=== PATIENT | male | born 1945 | race Caucasian/White ===

== ENCOUNTER 2021-04-13 11:51 | Inpatient (IN) ==
[2021-04-13] MEDS ORDERED: 0.9 % Sodium Chloride 1,000 ML IVC ONE (12:23)
[2021-04-13] MEDS ORDERED: Ipratropium/Albuterol Neb 3 ML IH ONE (12:23)
[2021-04-13 13:09] LABS: Mean Corpuscular HGB Conc 33.8 g/dL (31.6-35.5); Mean Corpuscular Hemoglobin 29.2 pg (28.0-33.3); Nucleated Red Blood Cells 0.3 /100 WBC (0); Red Cell Distribution Width 13.1 % (11.5-14.5)
[2021-04-13 13:11] LABS: Basophils % 0.2 %; Eosinophils # 0.2 K/mcL (0.0-0.6); Eosinophils % 0.9 %; Hematocrit 44.7 % (37.5-50.1); Hemoglobin 15.1 g/dL (12.9-16.9); Immature Granulocytes % 2.3 % (0-4); Immature Platelets 9.2 % (1.1-6.1); Lymphocytes # 0.9 K/mcL (0.6-4.6); Lymphocytes % 4.6 %; Mean Corpuscular Volume 86.5 fL (83.0-100.0); Monocytes # 0.4 K/mcL (0.0-1.3); Monocytes % 2.1 %; Neutrophils # 16.9 K/mcL (1.6-8.9); Platelet Count 136 K/mcL (140-400); Red Blood Count 5.17 M/mcL (4.19-5.50); Segmented Neutrophils % 89.9 %; White Blood Count 18.8 K/mcL (4.3-11.1)
[2021-04-13 13:18] LABS: BUN/Creatinine Ratio 22 (6-26); Blood Urea Nitrogen 23 mg/dL (8-23); Calcium 8.2 mg/dL (8.6-10.3); Carbon Dioxide 27 mEq/L (23-29); Chloride 103 mEq/L (98-107); Glucose 125 mg/dL (70-105); Osmolality,Calculated 293 (280-300); Potassium 3.2 mEq/L (3.5-5.1); Sodium 139 mEq/L (136-145); eGFR For African Americans > 60 (> 60); eGFR For Non-African Americans > 60 (> 60)
[2021-04-13] MEDS ORDERED: Ipratropium/Albuterol Neb 3 ML ONE (13:22)
[2021-04-13 13:27] LABS: Troponin I 8.14 ng/mL (< 0.04)
[2021-04-13] MEDS ORDERED: *HR* Heparin 5,000 UNIT/ML VIAL IVP PRN ×4 (13:50→22:27)
[2021-04-13] MEDS ORDERED: *HR* Heparin 5,000 UNIT/ML VIAL IVP ONE ×2 (13:50→22:27)
[2021-04-13] MEDS ORDERED: Heparin 25,000UNIT/250ML 1/2NS 25,000 UNIT/250 ML IV.SOLN IVC SCH (14:00)
[2021-04-13] MEDS ORDERED: Naloxone 0.4 MG/ML INJ IVP PRN (14:06)
[2021-04-13] MEDS ORDERED: Ondansetron 4 MG/2 ML VIAL IVP PRN (14:06)
[2021-04-13] MEDS ORDERED: Isovue-370 500 ML BOTTLE IVP ONE (14:09)
[2021-04-13] MEDS ORDERED: Ipratropium 1 PUFF INHALER IH PRN (14:10)
[2021-04-13] MEDS ORDERED: Dexamethasone Sodium Phos/PF 10 MG/ML VIAL IVP ONE (14:11)
[2021-04-13] MEDS ORDERED: Perflutren Lipid Microsphere 1.3 ML in 0.9 % Sodium Chloride 8.7 ML IVP PRN (14:27)
[2021-04-13 15:19] LABS: Hematocrit 42.3 % (37.5-50.1); Hemoglobin 14.2 g/dL (12.9-16.9); Mean Corpuscular HGB Conc 33.6 g/dL (31.6-35.5); Mean Corpuscular Hemoglobin 28.9 pg (28.0-33.3); Mean Platelet Volume 11.4 fL (9.4-12.4); Platelet Count 123 K/mcL (140-400); Red Blood Count 4.92 M/mcL (4.19-5.50); Red Cell Distribution Width 13.2 % (11.5-14.5); White Blood Count 17.6 K/mcL (4.3-11.1)
[2021-04-13 15:29] LABS: Heparin anti-factor XA UFH < 0.04 IU/mL (0.30-0.70)
[2021-04-13 15:30] LABS: INR 1.4; Prothrombin Time 15.9 Seconds (9.4-12.1)
[2021-04-13 16:55] LABS: Alanine Aminotransferase 35 Units/L (7-52); Alkaline Phosphatase 94 Units/L (34-104); Aspartate Amino Transferase 73 Units/L (13-39); Bilirubin,Direct 0.3 mg/dL (0.0-0.2); Bilirubin,Total 1.3 mg/dL (0.3-1.0); C-Reactive Protein 91 mg/L (Less than 10); Total Protein 5.8 g/dL (6.4-8.9)
[2021-04-13] MEDS ORDERED: carvediloL 6.25 MG TABLET PO SCH (17:00)
[2021-04-13 17:03] LABS: Albumin 3.1 g/dL (3.5-5.7); Albumin/Globulin Ratio 1.1 (1.1-2.2); Globulin 2.7 g/dL (2.4-3.5)
[2021-04-13 17:09] LABS: D-Dimer 88291 ng/mLFEU (0-500)
[2021-04-13] MEDS: Furosemide 20 MG/2 ML VIAL IVP SCH (19:51)
[2021-04-13] MEDS: Heparin 25,000 UNIT/250 ML 25,000 UNIT/250 ML IV.SOLN IVC SCH (22:41)
[2021-04-14] MEDS: amLODIPine 5 MG TABLET PO SCH (08:44)
[2021-04-14] MEDS: carvediloL 6.25 MG TABLET PO SCH ×2 (08:44→16:49)
[2021-04-14] MEDS: Furosemide 20 MG/2 ML VIAL IVP SCH ×2 (08:44→20:05)
[2021-04-14] MEDS: Aspirin Enteric Coated 81 MG Tablet PO SCH (08:44)
[2021-04-14 09:20] LABS: Hemoglobin 15.1 g/dL (12.9-16.9); Mean Corpuscular HGB Conc 34.3 g/dL (31.6-35.5); Mean Corpuscular Hemoglobin 29.6 pg (28.0-33.3); Mean Corpuscular Volume 86.3 fL (83.0-100.0); Platelet Count 145 K/mcL (140-400); Red Cell Distribution Width 13.3 % (11.5-14.5); White Blood Count 21.1 K/mcL (4.3-11.1)
[2021-04-14 09:43] LABS: BUN/Creatinine Ratio 27 (6-26); Blood Urea Nitrogen 24 mg/dL (8-23); Carbon Dioxide 27 mEq/L (23-29); Chloride 107 mEq/L (98-107); Glucose 120 mg/dL (70-105); Magnesium 2.1 mg/dL (1.6-2.6); Osmolality,Calculated 299 (280-300); Phosphorous 2.8 mg/dL (2.7-4.5); Sodium 142 mEq/L (136-145); eGFR For African Americans > 60 (> 60); eGFR For Non-African Americans > 60 (> 60)
[2021-04-14 09:47] LABS: Troponin I 6.48 ng/mL (< 0.04)
[2021-04-14] MEDS: Heparin 25,000 UNIT/250 ML 25,000 UNIT/250 ML IV.SOLN IVC SCH (20:14)
[2021-04-14] MEDS: Dexmedetomidine HCl 400 MCG/100 ML MLS IVC SCH (23:45)
[2021-04-15] MEDS: Ipratropium 1 PUFF INHALER IH SCH ×7 (00:03→23:48)
[2021-04-15 00:07] LABS: ABG Base Excess 6 mEq/L (-2 to 3); ABG HCO3 28 mEq/L (21-27); ABG Oxygen Saturation 91 % (95-98); ABG PCO2 34 mmHg (35-45); ABG PH 7.53 pH Units (7.32-7.45); ABG PO2 53 mmHg (85-104); ABG TCO2 29 mEq/L (20-26)
[2021-04-15 06:07] LABS: White Blood Count 25.7 K/mcL (4.3-11.1)
[2021-04-15 06:09] LABS: Basophils # 0.1 K/mcL (0.0-0.2); Basophils % 0.3 %; Hematocrit 39.4 % (37.5-50.1); Hemoglobin 13.6 g/dL (12.9-16.9); Immature Granulocytes % 3.4 % (0-4); Lymphocytes # 1.3 K/mcL (0.6-4.6); Mean Corpuscular HGB Conc 34.5 g/dL (31.6-35.5); Mean Corpuscular Hemoglobin 30.2 pg (28.0-33.3); Mean Corpuscular Volume 87.4 fL (83.0-100.0); Mean Platelet Volume 11.9 fL (9.4-12.4); Monocytes # 0.9 K/mcL (0.0-1.3); Monocytes % 3.5 %; Nucleated Red Blood Cells 0.1 /100 WBC (0); Platelet Count 178 K/mcL (140-400); Red Blood Count 4.51 M/mcL (4.19-5.50); Red Cell Distribution Width 13.5 % (11.5-14.5); Segmented Neutrophils % 87.8 %
[2021-04-15 06:10] LABS: Neutrophils # 22.6 K/mcL (1.6-8.9)
[2021-04-15 06:20] LABS: Fibrinogen 210 mg/dL (169-393)
[2021-04-15 06:26] LABS: BUN/Creatinine Ratio 33 (6-26); Blood Urea Nitrogen 36 mg/dL (8-23); Calcium 7.8 mg/dL (8.6-10.3); Carbon Dioxide 28 mEq/L (23-29); Chloride 103 mEq/L (98-107); Glucose 133 mg/dL (70-105); Lactate Dehydrogenase 764 Units/L (140-271); Osmolality,Calculated 302 (280-300); Potassium 3.1 mEq/L (3.5-5.1); Sodium 141 mEq/L (136-145); eGFR For African Americans > 60 (> 60); eGFR For Non-African Americans > 60 (> 60)
[2021-04-15] MEDS: Heparin 25,000 UNIT/250 ML 25,000 UNIT/250 ML IV.SOLN IVC SCH ×2 (06:29→22:42)
[2021-04-15 06:36] LABS: D-Dimer 4890 ng/mLFEU (0-500)
[2021-04-15 06:38] LABS: Ferritin 704 ng/mL (20-250)
[2021-04-15] MEDS: Furosemide 20 MG/2 ML VIAL IVP SCH ×2 (08:36→19:43)
[2021-04-15] MEDS: Cholecalciferol (D-3) 1,000 UNIT (25MCG) TABLET PO SCH (08:37)
[2021-04-15] MEDS: amLODIPine 5 MG TABLET PO SCH (08:37)
[2021-04-15] MEDS: Aspirin Enteric Coated 81 MG Tablet PO SCH (08:37)
[2021-04-15] MEDS: Loratadine 10 MG TABLET PO SCH (08:37)
[2021-04-15] MEDS: carvediloL 6.25 MG TABLET PO SCH ×2 (08:38→17:59)
[2021-04-15] MEDS: Dexmedetomidine HCl 400 MCG/100 ML MLS IVC SCH (12:14)
[2021-04-16] MEDS: Dexmedetomidine HCl 400 MCG/100 ML MLS IVC SCH ×2 (02:32→17:18)
[2021-04-16] MEDS: Ipratropium 1 PUFF INHALER IH SCH ×6 (04:10→23:35)
[2021-04-16 05:59] LABS: Basophils % 0.3 %; Monocytes % 3.7 %; Nucleated Red Blood Cells 0.1 /100 WBC (0)
[2021-04-16 06:01] LABS: Basophils # 0.1 K/mcL (0.0-0.2); Hematocrit 40.9 % (37.5-50.1); Immature Granulocytes % 3.8 % (0-4); Lymphocytes # 1.4 K/mcL (0.6-4.6); Lymphocytes % 4.7 %; Mean Corpuscular HGB Conc 34.2 g/dL (31.6-35.5); Mean Corpuscular Hemoglobin 29.7 pg (28.0-33.3); Mean Corpuscular Volume 86.7 fL (83.0-100.0); Mean Platelet Volume 11.5 fL (9.4-12.4); Monocytes # 1.1 K/mcL (0.0-1.3); Neutrophils # 26.4 K/mcL (1.6-8.9); Platelet Count 218 K/mcL (140-400); Red Blood Count 4.72 M/mcL (4.19-5.50); Red Cell Distribution Width 13.2 % (11.5-14.5); Segmented Neutrophils % 87.5 %
[2021-04-16 06:06] LABS: White Blood Count 30.2 K/mcL (4.3-11.1)
[2021-04-16 06:17] LABS: Alanine Aminotransferase 32 Units/L (7-52); Albumin 2.8 g/dL (3.5-5.7); Albumin/Globulin Ratio 1.3 (1.1-2.2); Alkaline Phosphatase 90 Units/L (34-104); Aspartate Amino Transferase 31 Units/L (13-39); BUN/Creatinine Ratio 35 (6-26); Bilirubin,Total 0.6 mg/dL (0.3-1.0); Blood Urea Nitrogen 40 mg/dL (8-23); Calcium 8.2 mg/dL (8.6-10.3); Carbon Dioxide 28 mEq/L (23-29); Chloride 105 mEq/L (98-107); Globulin 2.2 g/dL (2.4-3.5); Glucose 152 mg/dL (70-105); Magnesium 2.3 mg/dL (1.6-2.6); Osmolality,Calculated 303 (280-300); Phosphorous 3.6 mg/dL (2.7-4.5); Potassium 3.6 mEq/L (3.5-5.1); Sodium 140 mEq/L (136-145); eGFR For African Americans > 60 (> 60); eGFR For Non-African Americans > 60 (> 60)
[2021-04-16] MEDS: amLODIPine 5 MG TABLET PO SCH (08:02)
[2021-04-16] MEDS: carvediloL 6.25 MG TABLET PO SCH ×2 (08:02→17:13)
[2021-04-16] MEDS: Aspirin Enteric Coated 81 MG Tablet PO SCH (08:03)
[2021-04-16] MEDS: Furosemide 20 MG/2 ML VIAL IVP SCH ×2 (08:03→19:46)
[2021-04-16] MEDS: Cholecalciferol (D-3) 1,000 UNIT (25MCG) TABLET PO SCH (08:04)
[2021-04-16] MEDS: Loratadine 10 MG TABLET PO SCH (08:04)
[2021-04-16] MEDS: Heparin 25,000 UNIT/250 ML 25,000 UNIT/250 ML IV.SOLN IVC SCH (14:20)
[2021-04-17] MEDS: Ipratropium 1 PUFF INHALER IH SCH ×6 (03:50→23:43)
[2021-04-17] MEDS: Dexmedetomidine HCl 400 MCG/100 ML MLS IVC SCH ×2 (05:57→18:10)
[2021-04-17] MEDS: Heparin 25,000 UNIT/250 ML 25,000 UNIT/250 ML IV.SOLN IVC SCH (06:57)
[2021-04-17] MEDS: carvediloL 6.25 MG TABLET PO SCH (08:53)
[2021-04-17] MEDS: amLODIPine 5 MG TABLET PO SCH (08:53)
[2021-04-17] MEDS: Aspirin Enteric Coated 81 MG Tablet PO SCH (09:03)
[2021-04-17] MEDS: Loratadine 10 MG TABLET PO SCH (09:03)
[2021-04-17] MEDS: Furosemide 20 MG/2 ML VIAL IVP SCH ×2 (09:04→19:59)
[2021-04-17] MEDS: Cholecalciferol (D-3) 1,000 UNIT (25MCG) TABLET PO SCH (09:04)
[2021-04-17 09:57] LABS: Mean Platelet Volume 11.9 fL (9.4-12.4)
[2021-04-17 09:59] LABS: Hematocrit 42.1 % (37.5-50.1); Hemoglobin 14.1 g/dL (12.9-16.9); Mean Corpuscular HGB Conc 33.5 g/dL (31.6-35.5); Mean Corpuscular Hemoglobin 29.1 pg (28.0-33.3); Nucleated Red Blood Cells 0.1 /100 WBC (0); Platelet Count 242 K/mcL (140-400); Red Blood Count 4.84 M/mcL (4.19-5.50); Red Cell Distribution Width 13.5 % (11.5-14.5); White Blood Count 25.1 K/mcL (4.3-11.1)
[2021-04-17 10:14] LABS: Alanine Aminotransferase 44 Units/L (7-52); Albumin 2.8 g/dL (3.5-5.7); Albumin/Globulin Ratio 1.2 (1.1-2.2); Alkaline Phosphatase 79 Units/L (34-104); Aspartate Amino Transferase 36 Units/L (13-39); BUN/Creatinine Ratio 35 (6-26); Bilirubin,Total 0.6 mg/dL (0.3-1.0); Blood Urea Nitrogen 39 mg/dL (8-23); Carbon Dioxide 25 mEq/L (23-29); Chloride 103 mEq/L (98-107); Globulin 2.4 g/dL (2.4-3.5); Glucose 198 mg/dL (70-105); Osmolality,Calculated 301 (280-300); Potassium 3.1 mEq/L (3.5-5.1); Sodium 138 mEq/L (136-145); Total Protein 5.2 g/dL (6.4-8.9); eGFR For African Americans > 60 (> 60); eGFR For Non-African Americans > 60 (> 60)
[2021-04-17 10:21] LABS: Lymphocytes # 1.5 K/mcL (0.6-4.6); Monocytes # 0.8 K/mcL (0.0-1.3); Neutrophils # 22.8 K/mcL (1.6-8.9); Platelet Estimate Normal (Normal)
[2021-04-17] MEDS: Apixaban 5 MG TABLET PO SCH (19:59)
[2021-04-17] MEDS ORDERED: QUEtiapine Fumarate 25 MG TABLET PO SCH (21:00)
[2021-04-18] MEDS: Ipratropium 1 PUFF INHALER IH SCH ×6 (03:56→23:06)
[2021-04-18] MEDS: Dexmedetomidine HCl 400 MCG/100 ML MLS IVC SCH (04:21)
[2021-04-18] MEDS: Aspirin Enteric Coated 81 MG Tablet PO SCH (10:22)
[2021-04-18] MEDS: Apixaban 5 MG TABLET PO SCH ×2 (10:23→19:52)
[2021-04-18] MEDS: Furosemide 20 MG/2 ML VIAL IVP SCH ×2 (10:23→19:53)
[2021-04-18] MEDS: Cholecalciferol (D-3) 1,000 UNIT (25MCG) TABLET PO SCH (10:23)
[2021-04-18] MEDS: Loratadine 10 MG TABLET PO SCH (10:23)
[2021-04-18] MEDS: amLODIPine 5 MG TABLET PO SCH (10:23)
[2021-04-18] MEDS: QUEtiapine Fumarate 25 MG TABLET PO SCH ×2 (16:31→19:52)
[2021-04-19] MEDS: Ipratropium 1 PUFF INHALER IH SCH ×6 (03:30→23:55)
[2021-04-19] MEDS: Cholecalciferol (D-3) 1,000 UNIT (25MCG) TABLET PO SCH (09:56)
[2021-04-19] MEDS: amLODIPine 5 MG TABLET PO SCH (09:56)
[2021-04-19] MEDS: Loratadine 10 MG TABLET PO SCH (09:57)
[2021-04-19] MEDS: Furosemide 20 MG/2 ML VIAL IVP SCH ×2 (09:57→20:26)
[2021-04-19] MEDS: Aspirin Enteric Coated 81 MG Tablet PO SCH (09:57)
[2021-04-19] MEDS: Apixaban 5 MG TABLET PO SCH ×2 (09:57→20:27)
[2021-04-19] MEDS: QUEtiapine Fumarate 25 MG TABLET PO SCH ×2 (09:57→20:27)
[2021-04-19] MEDS: Dexamethasone Sodium Phos/PF 10 MG/ML VIAL IVP SCH (09:58)
[2021-04-19] MEDS: carvediloL 6.25 MG TABLET PO SCH ×2 (10:00→20:27)
[2021-04-19 10:05] LABS: Mean Platelet Volume 11.1 fL (9.4-12.4); Nucleated Red Blood Cells 0.1 /100 WBC (0)
[2021-04-19 10:07] LABS: Hematocrit 43.9 % (37.5-50.1); Hemoglobin 14.6 g/dL (12.9-16.9); Mean Corpuscular HGB Conc 33.3 g/dL (31.6-35.5); Mean Corpuscular Hemoglobin 29.3 pg (28.0-33.3); Platelet Count 280 K/mcL (140-400); Red Blood Count 4.99 M/mcL (4.19-5.50); White Blood Count 25.9 K/mcL (4.3-11.1)
[2021-04-19 10:24] LABS: Alanine Aminotransferase 55 Units/L (7-52); Albumin 3.1 g/dL (3.5-5.7); Albumin/Globulin Ratio 1.3 (1.1-2.2); Alkaline Phosphatase 74 Units/L (34-104); Aspartate Amino Transferase 32 Units/L (13-39); Bilirubin,Total 0.7 mg/dL (0.3-1.0); Blood Urea Nitrogen 39 mg/dL (8-23); Calcium 8.2 mg/dL (8.6-10.3); Carbon Dioxide 26 mEq/L (23-29); Chloride 104 mEq/L (98-107); Globulin 2.3 g/dL (2.4-3.5); Glucose 128 mg/dL (70-105); Osmolality,Calculated 297 (280-300); Potassium 3.3 mEq/L (3.5-5.1); Sodium 138 mEq/L (136-145); Total Protein 5.4 g/dL (6.4-8.9)
[2021-04-19 11:33] LABS: BUN/Creatinine Ratio 36 (6-26); eGFR For African Americans > 60 (> 60); eGFR For Non-African Americans > 60 (> 60)
[2021-04-19 15:45] LABS: Monocytes # 1.6 K/mcL (0.0-1.3); Neutrophils # 23.3 K/mcL (1.6-8.9); Reactive Lymphocytes Present (Not Present)
[2021-04-19 15:46] LABS: Platelet Estimate Normal (Normal)
[2021-04-20] MEDS: Ipratropium 1 PUFF INHALER IH SCH ×5 (03:48→20:47)
[2021-04-20] MEDS: Apixaban 5 MG TABLET PO SCH ×2 (08:34→21:26)
[2021-04-20] MEDS: amLODIPine 5 MG TABLET PO SCH (08:34)
[2021-04-20] MEDS: Cholecalciferol (D-3) 1,000 UNIT (25MCG) TABLET PO SCH (08:34)
[2021-04-20] MEDS: Loratadine 10 MG TABLET PO SCH (08:35)
[2021-04-20] MEDS: QUEtiapine Fumarate 25 MG TABLET PO SCH ×2 (08:35→21:26)
[2021-04-20] MEDS: Furosemide 20 MG/2 ML VIAL IVP SCH ×3 (08:35→21:15)
[2021-04-20] MEDS: Aspirin Enteric Coated 81 MG Tablet PO SCH (08:35)
[2021-04-20] MEDS: carvediloL 6.25 MG TABLET PO SCH ×2 (08:35→21:26)
[2021-04-20] MEDS: Dexamethasone Sodium Phos/PF 10 MG/ML VIAL IVP SCH (08:36)
[2021-04-20] MEDS ORDERED: Haloperidol Lactate 5 MG/ML VIAL IM ONE (21:04)
[2021-04-21] MEDS: Ipratropium 1 PUFF INHALER IH SCH ×7 (00:13→23:40)
[2021-04-21 02:13] LABS: Hematocrit 48.8 % (37.5-50.1); Hemoglobin 15.8 g/dL (12.9-16.9); Mean Corpuscular HGB Conc 32.4 g/dL (31.6-35.5); Mean Corpuscular Volume 89.7 fL (83.0-100.0); Mean Platelet Volume 10.8 fL (9.4-12.4); Platelet Count 307 K/mcL (140-400); Red Blood Count 5.44 M/mcL (4.19-5.50); Red Cell Distribution Width 14.2 % (11.5-14.5); White Blood Count 26.9 K/mcL (4.3-11.1)
[2021-04-21 02:31] LABS: BUN/Creatinine Ratio 38 (6-26); Blood Urea Nitrogen 34 mg/dL (8-23); Calcium 8.1 mg/dL (8.6-10.3); Carbon Dioxide 23 mEq/L (23-29); Chloride 104 mEq/L (98-107); Glucose 113 mg/dL (70-105); Magnesium 2.3 mg/dL (1.6-2.6); Osmolality,Calculated 290 (280-300); Potassium 4.1 mEq/L (3.5-5.1); Sodium 136 mEq/L (136-145); eGFR For African Americans > 60 (> 60); eGFR For Non-African Americans > 60 (> 60)
[2021-04-21 02:33] LABS: BUN/Creatinine Ratio 37 (6-26); Blood Urea Nitrogen 34 mg/dL (8-23); Calcium 8.3 mg/dL (8.6-10.3); Carbon Dioxide 24 mEq/L (23-29); Chloride 104 mEq/L (98-107); Glucose 112 mg/dL (70-105); Osmolality,Calculated 292 (280-300); Sodium 137 mEq/L (136-145); eGFR For African Americans > 60 (> 60); eGFR For Non-African Americans > 60 (> 60)
[2021-04-21 02:37] LABS: Lymphocytes # 1.1 K/mcL (0.6-4.6); Monocytes # 2.2 K/mcL (0.0-1.3); Neutrophils # 23.7 K/mcL (1.6-8.9); Platelet Estimate Normal (Normal); Reactive Lymphocytes Present (Not Present)
[2021-04-21] MEDS: Aspirin Enteric Coated 81 MG Tablet PO SCH (07:37)
[2021-04-21] MEDS: Cholecalciferol (D-3) 1,000 UNIT (25MCG) TABLET PO SCH (07:37)
[2021-04-21] MEDS: Loratadine 10 MG TABLET PO SCH (07:37)
[2021-04-21] MEDS: QUEtiapine Fumarate 25 MG TABLET PO SCH ×2 (07:37→21:01)
[2021-04-21] MEDS: amLODIPine 5 MG TABLET PO SCH (07:38)
[2021-04-21] MEDS: *HR* HYDROcodone/Acet 5/325 mg TABLET PO PRN ×2 (07:38→14:42)
[2021-04-21] MEDS: carvediloL 6.25 MG TABLET PO SCH ×2 (07:38→21:01)
[2021-04-21] MEDS: Apixaban 5 MG TABLET PO SCH ×2 (07:38→21:01)
[2021-04-21] MEDS: Furosemide 20 MG TABLET PO SCH (10:15)
[2021-04-21] MEDS: dexAMETHasone 4 MG TABLET PO SCH (10:15)
[2021-04-22] MEDS: Ipratropium 1 PUFF INHALER IH SCH ×2 (04:07→11:02)
[2021-04-22] MEDS: Cholecalciferol (D-3) 1,000 UNIT (25MCG) TABLET PO SCH (09:53)
[2021-04-22] MEDS: amLODIPine 5 MG TABLET PO SCH (09:53)
[2021-04-22] MEDS: Furosemide 20 MG TABLET PO SCH (09:53)
[2021-04-22] MEDS: Apixaban 5 MG TABLET PO SCH ×2 (09:53→21:13)
[2021-04-22] MEDS: dexAMETHasone 4 MG TABLET PO SCH (09:53)
[2021-04-22] MEDS: carvediloL 6.25 MG TABLET PO SCH ×2 (09:53→21:13)
[2021-04-22] MEDS: QUEtiapine Fumarate 25 MG TABLET PO SCH ×2 (09:53→21:14)
[2021-04-22] MEDS: Aspirin Enteric Coated 81 MG Tablet PO SCH (09:53)
[2021-04-22] MEDS: Loratadine 10 MG TABLET PO SCH (09:53)
[2021-04-22] MEDS ORDERED: Ipratropium 1 PUFF INHALER IH PRN (11:01)
[2021-04-22] MEDS ORDERED: Benzonatate 100 MG CAPSULE PO PRN (17:40)
[2021-04-23] MEDS ORDERED: *HR* Metoprolol 5 MG/5 ML VIAL IVP ONE (00:58)
[2021-04-23 01:33] LABS: Platelet Count 221 K/mcL (140-400)
[2021-04-23 01:34] LABS: Hematocrit 44.7 % (37.5-50.1); Hemoglobin 14.2 g/dL (12.9-16.9); Mean Corpuscular HGB Conc 31.8 g/dL (31.6-35.5); Mean Corpuscular Volume 91.4 fL (83.0-100.0); Mean Platelet Volume 11.2 fL (9.4-12.4); Red Blood Count 4.89 M/mcL (4.19-5.50); Red Cell Distribution Width 14.6 % (11.5-14.5)
[2021-04-23 01:41] LABS: White Blood Count 34.9 K/mcL (4.3-11.1)
[2021-04-23 01:48] LABS: BUN/Creatinine Ratio 35 (6-26); Blood Urea Nitrogen 44 mg/dL (8-23); Calcium 8.4 mg/dL (8.6-10.3); Carbon Dioxide 21 mEq/L (23-29); Chloride 104 mEq/L (98-107); Glucose 145 mg/dL (70-105); Osmolality,Calculated 292 (280-300); Potassium 4.3 mEq/L (3.5-5.1); Sodium 134 mEq/L (136-145); eGFR For African Americans > 60 (> 60); eGFR For Non-African Americans 56 (> 60)
[2021-04-23] MEDS: amLODIPine 5 MG TABLET PO SCH (09:02)
[2021-04-23] MEDS: Apixaban 5 MG TABLET PO SCH ×2 (09:02→20:36)
[2021-04-23] MEDS: carvediloL 6.25 MG TABLET PO SCH ×2 (09:02→20:36)
[2021-04-23] MEDS: Cholecalciferol (D-3) 1,000 UNIT (25MCG) TABLET PO SCH (09:02)
[2021-04-23] MEDS: Loratadine 10 MG TABLET PO SCH (09:02)
[2021-04-23] MEDS: Aspirin Enteric Coated 81 MG Tablet PO SCH (09:02)
[2021-04-23] MEDS: Furosemide 20 MG TABLET PO SCH (09:02)
[2021-04-23] MEDS: QUEtiapine Fumarate 25 MG TABLET PO SCH ×2 (09:02→20:36)
[2021-04-23 12:21] LABS: Lymphocytes # 0.7 K/mcL (0.6-4.6); Monocytes # 1.4 K/mcL (0.0-1.3); Neutrophils # 32.8 K/mcL (1.6-8.9); Platelet Estimate Normal (Normal)
[2021-04-23 12:22] LABS: Toxic Granulation Present (Not Present)
[2021-04-23] MEDS ORDERED: Vancomycin 1,250 MG/262.5 ML IV.SOLN IVPB ONE (14:37)
[2021-04-23] MEDS ORDERED: Vancomycin 1 EACH in 0.9 % Sodium Chloride 250 ML IVPB SCH (15:00)
[2021-04-23 15:20] LABS: ABG Base Excess 1 mEq/L (-2 to 3); ABG HCO3 25 mEq/L (21-27); ABG Oxygen Saturation 91 % (95-98); ABG PCO2 35 mmHg (35-45); ABG PH 7.46 pH Units (7.32-7.45); ABG PO2 57 mmHg (85-104); ABG TCO2 26 mEq/L (20-26)
[2021-04-23 15:27] LABS: Bilirubin,Urine Negative (Negative); Blood,Urine Negative (Negative); Clarity,Urine Clear (Clear); Color,Urine Light-Yellow (Yellow); Glucose,Urine (UA) Normal (Normal); Ketones,Urine Negative (Negative); Leukocyte Esterase,Urine Negative (Negative); Nitrite,Urine Negative (Negative); PH,Urine 5.5 pH Units (5.0-8.0); Protein,Urine Trace mg/dL (Neg-Trace); Specific Gravity,Urine 1.022 (1.010-1.025); Urobilinogen,Urine Normal (Normal)
[2021-04-23] MEDS: Piperacillin/Tazobactam 3.375 GM in 0.9 % Sodium Chloride Mini Bag 100 ML IVPB SCH (16:49)
[2021-04-24] MEDS: Piperacillin/Tazobactam 3.375 GM in 0.9 % Sodium Chloride Mini Bag 100 ML IVPB SCH ×2 (00:53→08:14)
[2021-04-24 01:47] LABS: Alanine Aminotransferase 27 Units/L (7-52); Albumin 2.3 g/dL (3.5-5.7); Albumin/Globulin Ratio 0.9 (1.1-2.2); Alkaline Phosphatase 68 Units/L (34-104); Aspartate Amino Transferase 22 Units/L (13-39); BUN/Creatinine Ratio 38 (6-26); Bilirubin,Total 0.8 mg/dL (0.3-1.0); Blood Urea Nitrogen 42 mg/dL (8-23); Carbon Dioxide 24 mEq/L (23-29); Chloride 103 mEq/L (98-107); Globulin 2.7 g/dL (2.4-3.5); Glucose 113 mg/dL (70-105); Osmolality,Calculated 283 (280-300); Potassium 3.9 mEq/L (3.5-5.1); Sodium 131 mEq/L (136-145); eGFR For African Americans > 60 (> 60); eGFR For Non-African Americans > 60 (> 60)
[2021-04-24 03:21] LABS: Hemoglobin 11.8 g/dL (12.9-16.9); Lymphocytes % 3.7 %; Mean Platelet Volume 11.1 fL (9.4-12.4)
[2021-04-24 03:22] LABS: Basophils # 0.1 K/mcL (0.0-0.2); Basophils % 0.2 %; Eosinophils % 0.1 %; Hematocrit 36.4 % (37.5-50.1); Immature Granulocytes % 1.7 % (0-4); Lymphocytes # 1.1 K/mcL (0.6-4.6); Mean Corpuscular HGB Conc 32.4 g/dL (31.6-35.5); Mean Corpuscular Hemoglobin 29.9 pg (28.0-33.3); Mean Corpuscular Volume 92.2 fL (83.0-100.0); Monocytes # 1.8 K/mcL (0.0-1.3); Monocytes % 6.1 %; Neutrophils # 25.5 K/mcL (1.6-8.9); Platelet Count 208 K/mcL (140-400); Red Blood Count 3.95 M/mcL (4.19-5.50); Red Cell Distribution Width 14.8 % (11.5-14.5); Segmented Neutrophils % 88.2 %; White Blood Count 28.9 K/mcL (4.3-11.1)
[2021-04-24 04:04] LABS: Acinetobacter baumannii by PCR Not Detected (Not Detect); Candida albicans by PCR Not Detected (Not Detect); Candida glabrata by PCR Not Detected (Not Detect); Candida krusei by PCR Not Detected (Not Detect); Candida parapsilosis by PCR Not Detected (Not Detect); Candida tropicalis by PCR Not Detected (Not Detect); Enterobacter cloacae Cmplx PCR Not Detected (Not Detect); Enterobacteriaceae by PCR Not Detected (Not Detect); Enterococcus by PCR Not Detected (Not Detect); Escherichia coli by PCR Not Detected (Not Detect); Klebsiella oxytoca by PCR Not Detected (Not Detect); Klebsiella pneumoniae by PCR Not Detected (Not Detect); Proteus by PCR Not Detected (Not Detect); Pseudomonas aeruginosa by PCR Not Detected (Not Detect); Serratia marcescens by PCR Not Detected (Not Detect); Staphylococcus aureus by PCR DETECTED (Not Detect); Streptococcus agalactiae(B)PCR Not Detected (Not Detect); Streptococcus by PCR Not Detected (Not Detect); Streptococcus pneumoniae PCR Not Detected (Not Detect); Streptococcus pyogenes (A) PCR Not Detected (Not Detect); mecA Methicillin-Resist Gene Not Detected (Not Detect)
[2021-04-24] MEDS: Aspirin Enteric Coated 81 MG Tablet PO SCH (08:13)
[2021-04-24] MEDS: amLODIPine 5 MG TABLET PO SCH (08:13)
[2021-04-24] MEDS: carvediloL 6.25 MG TABLET PO SCH ×2 (08:13→21:01)
[2021-04-24] MEDS: Cholecalciferol (D-3) 1,000 UNIT (25MCG) TABLET PO SCH (08:13)
[2021-04-24] MEDS: Loratadine 10 MG TABLET PO SCH (08:14)
[2021-04-24] MEDS: Apixaban 5 MG TABLET PO SCH ×2 (08:14→21:01)
[2021-04-24] MEDS: QUEtiapine Fumarate 25 MG TABLET PO SCH ×2 (08:14→21:01)
[2021-04-24] MEDS ORDERED: Perflutren Lipid Microsphere 1.3 ML in 0.9 % Sodium Chloride 8.7 ML IVP PRN (10:07)
[2021-04-24] MEDS ORDERED: Vancomycin 1,250 MG/262.5 ML IV.SOLN IVPB SCH ×2 (15:00)
[2021-04-24] MEDS: ceFAZolin 2,000 MG in 0.9 % Sodium Chloride 100 ML IVPB SCH ×2 (18:32→23:16)
[2021-04-25 05:14] LABS: Basophils % 0.2 %; Eosinophils # 0.1 K/mcL (0.0-0.6); Eosinophils % 0.7 %; Hematocrit 35.2 % (37.5-50.1); Hemoglobin 11.5 g/dL (12.9-16.9); Immature Granulocytes % 0.6 % (0-4); Lymphocytes % 5.3 %; Mean Corpuscular HGB Conc 32.7 g/dL (31.6-35.5); Mean Corpuscular Hemoglobin 29.6 pg (28.0-33.3); Mean Corpuscular Volume 90.5 fL (83.0-100.0); Mean Platelet Volume 10.4 fL (9.4-12.4); Monocytes # 1.1 K/mcL (0.0-1.3); Monocytes % 5.6 %; Neutrophils # 16.6 K/mcL (1.6-8.9); Platelet Count 202 K/mcL (140-400); Red Blood Count 3.89 M/mcL (4.19-5.50); Red Cell Distribution Width 14.6 % (11.5-14.5); Segmented Neutrophils % 87.6 %; White Blood Count 18.9 K/mcL (4.3-11.1)
[2021-04-25 05:31] LABS: Alanine Aminotransferase 113 Units/L (7-52); Albumin 2.3 g/dL (3.5-5.7); Albumin/Globulin Ratio 0.8 (1.1-2.2); Alkaline Phosphatase 115 Units/L (34-104); Aspartate Amino Transferase 102 Units/L (13-39); BUN/Creatinine Ratio 30 (6-26); Bilirubin,Total 0.6 mg/dL (0.3-1.0); Blood Urea Nitrogen 30 mg/dL (8-23); Calcium 7.7 mg/dL (8.6-10.3); Carbon Dioxide 24 mEq/L (23-29); Chloride 105 mEq/L (98-107); Globulin 2.8 g/dL (2.4-3.5); Glucose 106 mg/dL (70-105); Osmolality,Calculated 289 (280-300); Potassium 3.7 mEq/L (3.5-5.1); Sodium 136 mEq/L (136-145); Total Protein 5.1 g/dL (6.4-8.9); eGFR For African Americans > 60 (> 60); eGFR For Non-African Americans > 60 (> 60)
[2021-04-25] MEDS: ceFAZolin 2,000 MG in 0.9 % Sodium Chloride 100 ML IVPB SCH ×3 (08:42→23:15)
[2021-04-25] MEDS: amLODIPine 5 MG TABLET PO SCH (08:43)
[2021-04-25] MEDS: Cholecalciferol (D-3) 1,000 UNIT (25MCG) TABLET PO SCH (08:43)
[2021-04-25] MEDS: Loratadine 10 MG TABLET PO SCH (08:43)
[2021-04-25] MEDS: carvediloL 6.25 MG TABLET PO SCH ×2 (08:43→20:22)
[2021-04-25] MEDS: Apixaban 5 MG TABLET PO SCH ×2 (08:43→20:22)
[2021-04-25] MEDS: Aspirin Enteric Coated 81 MG Tablet PO SCH (08:43)
[2021-04-25] MEDS: QUEtiapine Fumarate 25 MG TABLET PO SCH ×2 (08:43→20:21)
[2021-04-26 03:16] LABS: Basophils % 0.1 %; Eosinophils # 0.3 K/mcL (0.0-0.6); Eosinophils % 2.2 %; Hematocrit 33.5 % (37.5-50.1); Immature Granulocytes % 0.5 % (0-4); Lymphocytes % 7.4 %; Mean Corpuscular HGB Conc 32.8 g/dL (31.6-35.5); Mean Corpuscular Hemoglobin 30.1 pg (28.0-33.3); Mean Corpuscular Volume 91.8 fL (83.0-100.0); Mean Platelet Volume 10.7 fL (9.4-12.4); Monocytes # 0.8 K/mcL (0.0-1.3); Monocytes % 6.5 %; Neutrophils # 10.8 K/mcL (1.6-8.9); Platelet Count 212 K/mcL (140-400); Red Blood Count 3.65 M/mcL (4.19-5.50); Red Cell Distribution Width 14.7 % (11.5-14.5); Segmented Neutrophils % 83.3 %
[2021-04-26 03:40] LABS: BUN/Creatinine Ratio 28 (6-26); Blood Urea Nitrogen 23 mg/dL (8-23); Calcium 7.6 mg/dL (8.6-10.3); Carbon Dioxide 23 mEq/L (23-29); Chloride 107 mEq/L (98-107); Glucose 115 mg/dL (70-105); Osmolality,Calculated 289 (280-300); Potassium 3.9 mEq/L (3.5-5.1); Sodium 137 mEq/L (136-145); eGFR For African Americans > 60 (> 60); eGFR For Non-African Americans > 60 (> 60)
[2021-04-26 04:33] LABS: Albumin 2.3 g/dL (3.5-5.7); Albumin/Globulin Ratio 0.9 (1.1-2.2); Bilirubin,Direct 0.1 mg/dL (0.0-0.2); Bilirubin,Indirect 0.3 mg/dL (0.0-1.0); Bilirubin,Total 0.4 mg/dL (0.3-1.0); Globulin 2.7 g/dL (2.4-3.5)
[2021-04-26] MEDS: Cholecalciferol (D-3) 1,000 UNIT (25MCG) TABLET PO SCH (08:01)
[2021-04-26] MEDS: Loratadine 10 MG TABLET PO SCH (08:01)
[2021-04-26] MEDS: Aspirin Enteric Coated 81 MG Tablet PO SCH (08:01)
[2021-04-26] MEDS: Apixaban 5 MG TABLET PO SCH ×2 (08:01→20:59)
[2021-04-26] MEDS: amLODIPine 5 MG TABLET PO SCH (08:01)
[2021-04-26] MEDS: carvediloL 6.25 MG TABLET PO SCH ×2 (08:01→20:59)
[2021-04-26] MEDS: ceFAZolin 2,000 MG in 0.9 % Sodium Chloride 100 ML IVPB SCH ×3 (08:04→23:21)
[2021-04-26] MEDS: QUEtiapine Fumarate 25 MG TABLET PO SCH (20:59)
[2021-04-27 03:08] LABS: Basophils % 0.1 %; Eosinophils # 0.3 K/mcL (0.0-0.6); Eosinophils % 2.9 %; Hematocrit 35.8 % (37.5-50.1); Hemoglobin 11.8 g/dL (12.9-16.9); Immature Granulocytes % 0.5 % (0-4); Lymphocytes # 0.8 K/mcL (0.6-4.6); Lymphocytes % 6.8 %; Mean Corpuscular Hemoglobin 29.9 pg (28.0-33.3); Mean Corpuscular Volume 90.6 fL (83.0-100.0); Mean Platelet Volume 10.4 fL (9.4-12.4); Monocytes # 0.7 K/mcL (0.0-1.3); Monocytes % 5.8 %; Neutrophils # 9.7 K/mcL (1.6-8.9); Platelet Count 227 K/mcL (140-400); Red Blood Count 3.95 M/mcL (4.19-5.50); Red Cell Distribution Width 14.2 % (11.5-14.5); Segmented Neutrophils % 83.9 %; White Blood Count 11.5 K/mcL (4.3-11.1)
[2021-04-27 03:23] LABS: Alanine Aminotransferase 82 Units/L (7-52); Albumin 2.4 g/dL (3.5-5.7); Albumin/Globulin Ratio 0.8 (1.1-2.2); Alkaline Phosphatase 124 Units/L (34-104); Aspartate Amino Transferase 61 Units/L (13-39); BUN/Creatinine Ratio 23 (6-26); Bilirubin,Total 0.5 mg/dL (0.3-1.0); Blood Urea Nitrogen 15 mg/dL (8-23); Calcium 7.6 mg/dL (8.6-10.3); Carbon Dioxide 26 mEq/L (23-29); Chloride 104 mEq/L (98-107); Globulin 3.1 g/dL (2.4-3.5); Glucose 134 mg/dL (70-105); Osmolality,Calculated 285 (280-300); Potassium 3.6 mEq/L (3.5-5.1); Sodium 136 mEq/L (136-145); Total Protein 5.5 g/dL (6.4-8.9); eGFR For African Americans > 60 (> 60); eGFR For Non-African Americans > 60 (> 60)
[2021-04-27] MEDS: carvediloL 6.25 MG TABLET PO SCH ×2 (07:43→21:06)
[2021-04-27] MEDS: Aspirin Enteric Coated 81 MG Tablet PO SCH (07:43)
[2021-04-27] MEDS: Apixaban 5 MG TABLET PO SCH ×2 (07:43→21:06)
[2021-04-27] MEDS: Cholecalciferol (D-3) 1,000 UNIT (25MCG) TABLET PO SCH (07:43)
[2021-04-27] MEDS: Loratadine 10 MG TABLET PO SCH (07:43)
[2021-04-27] MEDS: amLODIPine 5 MG TABLET PO SCH (07:43)
[2021-04-27] MEDS: ceFAZolin 2,000 MG in 0.9 % Sodium Chloride 100 ML IVPB SCH ×2 (08:02→16:06)
[2021-04-27] MEDS: QUEtiapine Fumarate 25 MG TABLET PO SCH (21:05)
[2021-04-28] MEDS: ceFAZolin 2,000 MG in 0.9 % Sodium Chloride 100 ML IVPB SCH ×4 (00:05→23:46)
[2021-04-28 03:11] LABS: Hematocrit 34.9 % (37.5-50.1); Hemoglobin 11.3 g/dL (12.9-16.9); Mean Corpuscular HGB Conc 32.4 g/dL (31.6-35.5); Mean Corpuscular Volume 89.7 fL (83.0-100.0); Mean Platelet Volume 10.1 fL (9.4-12.4); Platelet Count 203 K/mcL (140-400); Red Blood Count 3.89 M/mcL (4.19-5.50); Red Cell Distribution Width 14.2 % (11.5-14.5); White Blood Count 9.3 K/mcL (4.3-11.1)
[2021-04-28 03:23] LABS: BUN/Creatinine Ratio 22 (6-26); Blood Urea Nitrogen 15 mg/dL (8-23); Calcium 7.7 mg/dL (8.6-10.3); Carbon Dioxide 27 mEq/L (23-29); Chloride 104 mEq/L (98-107); Glucose 111 mg/dL (70-105); Osmolality,Calculated 286 (280-300); Potassium 3.4 mEq/L (3.5-5.1); Sodium 137 mEq/L (136-145); eGFR For African Americans > 60 (> 60); eGFR For Non-African Americans > 60 (> 60)
[2021-04-28] MEDS: Loratadine 10 MG TABLET PO SCH (08:12)
[2021-04-28] MEDS: Cholecalciferol (D-3) 1,000 UNIT (25MCG) TABLET PO SCH (08:12)
[2021-04-28] MEDS: amLODIPine 5 MG TABLET PO SCH (08:12)
[2021-04-28] MEDS: Aspirin Enteric Coated 81 MG Tablet PO SCH (08:12)
[2021-04-28] MEDS: Apixaban 5 MG TABLET PO SCH ×2 (08:12→19:38)
[2021-04-28] MEDS: QUEtiapine Fumarate 25 MG TABLET PO SCH ×2 (08:13→19:38)
[2021-04-28] MEDS: carvediloL 6.25 MG TABLET PO SCH ×2 (08:13→19:38)
[2021-04-28] MEDS ORDERED: traZODone 50 MG TABLET PO PRN (21:38)
[2021-04-29 02:25] LABS: Mean Corpuscular HGB Conc 31.4 g/dL (31.6-35.5); Mean Corpuscular Hemoglobin 28.6 pg (28.0-33.3); Mean Corpuscular Volume 91.1 fL (83.0-100.0); Mean Platelet Volume 10.1 fL (9.4-12.4); Platelet Count 208 K/mcL (140-400); Red Blood Count 3.84 M/mcL (4.19-5.50); Red Cell Distribution Width 14.1 % (11.5-14.5); White Blood Count 8.1 K/mcL (4.3-11.1)
[2021-04-29 02:27] LABS: Alanine Aminotransferase 58 Units/L (7-52); Albumin 2.3 g/dL (3.5-5.7); Albumin/Globulin Ratio 0.7 (1.1-2.2); Alkaline Phosphatase 101 Units/L (34-104); Aspartate Amino Transferase 50 Units/L (13-39); BUN/Creatinine Ratio 25 (6-26); Bilirubin,Direct 0.1 mg/dL (0.0-0.2); Bilirubin,Indirect 0.4 mg/dL (0.0-1.0); Bilirubin,Total 0.5 mg/dL (0.3-1.0); Blood Urea Nitrogen 17 mg/dL (8-23); Calcium 7.7 mg/dL (8.6-10.3); Carbon Dioxide 27 mEq/L (23-29); Chloride 105 mEq/L (98-107); Globulin 3.1 g/dL (2.4-3.5); Glucose 108 mg/dL (70-105); Osmolality,Calculated 288 (280-300); Potassium 3.3 mEq/L (3.5-5.1); Sodium 138 mEq/L (136-145); Total Protein 5.4 g/dL (6.4-8.9); eGFR For African Americans > 60 (> 60); eGFR For Non-African Americans > 60 (> 60)
[2021-04-29] MEDS: Cholecalciferol (D-3) 1,000 UNIT (25MCG) TABLET PO SCH (07:53)
[2021-04-29] MEDS: carvediloL 6.25 MG TABLET PO SCH ×2 (07:53→20:22)
[2021-04-29] MEDS: amLODIPine 5 MG TABLET PO SCH (07:54)
[2021-04-29] MEDS: Loratadine 10 MG TABLET PO SCH (07:55)
[2021-04-29] MEDS: Aspirin Enteric Coated 81 MG Tablet PO SCH (07:55)
[2021-04-29] MEDS: QUEtiapine Fumarate 25 MG TABLET PO SCH ×2 (07:55→20:22)
[2021-04-29] MEDS: Apixaban 5 MG TABLET PO SCH ×2 (07:56→20:22)
[2021-04-29] MEDS: ceFAZolin 2,000 MG in 0.9 % Sodium Chloride 100 ML IVPB SCH ×3 (08:43→23:40)
[2021-04-29] MEDS ORDERED: Lidocaine Viscous Oral Soln 15 ML SOLUTION MM PRN (10:49)
[2021-04-29] MEDS ORDERED: 0.9 % Sodium Chloride 500 ML IVC ONE (10:50)
[2021-04-29] MEDS: *HR* FentaNYL (PF) 100 MCG/2 ML VIAL IVP PRN ×2 (11:20→11:25)
[2021-04-29] MEDS: *HR* Midazolam HCl 5 MG/5 ML VIAL IVP PRN ×2 (11:20→11:25)
[2021-04-30 03:01] LABS: Hemoglobin 10.4 g/dL (12.9-16.9); Mean Corpuscular HGB Conc 32.5 g/dL (31.6-35.5); Mean Corpuscular Hemoglobin 29.1 pg (28.0-33.3); Mean Corpuscular Volume 89.6 fL (83.0-100.0); Mean Platelet Volume 9.8 fL (9.4-12.4); Platelet Count 209 K/mcL (140-400); Red Blood Count 3.57 M/mcL (4.19-5.50); White Blood Count 7.6 K/mcL (4.3-11.1)
[2021-04-30 03:23] LABS: BUN/Creatinine Ratio 17 (6-26); Blood Urea Nitrogen 14 mg/dL (8-23); Calcium 7.5 mg/dL (8.6-10.3); Carbon Dioxide 26 mEq/L (23-29); Chloride 105 mEq/L (98-107); Glucose 107 mg/dL (70-105); Osmolality,Calculated 285 (280-300); Potassium 3.3 mEq/L (3.5-5.1); Sodium 137 mEq/L (136-145); eGFR For African Americans > 60 (> 60); eGFR For Non-African Americans > 60 (> 60)
[2021-04-30] MEDS: QUEtiapine Fumarate 25 MG TABLET PO SCH ×2 (08:32→19:53)
[2021-04-30] MEDS: carvediloL 6.25 MG TABLET PO SCH ×2 (08:32→19:53)
[2021-04-30] MEDS: Cholecalciferol (D-3) 1,000 UNIT (25MCG) TABLET PO SCH (08:33)
[2021-04-30] MEDS: Loratadine 10 MG TABLET PO SCH (08:33)
[2021-04-30] MEDS: ceFAZolin 2,000 MG in 0.9 % Sodium Chloride 100 ML IVPB SCH ×3 (08:33→23:12)
[2021-04-30] MEDS: Aspirin Enteric Coated 81 MG Tablet PO SCH (08:33)
[2021-04-30] MEDS: Apixaban 5 MG TABLET PO SCH ×2 (08:33→19:53)
[2021-04-30] MEDS: amLODIPine 5 MG TABLET PO SCH (08:33)
[2021-04-30] MEDS ORDERED: DAPTOmycin 500 MG in 0.9 % Sodium Chloride 100 ML IVPB SCH (09:00)
[2021-05-01] MEDS: ceFAZolin 2,000 MG in 0.9 % Sodium Chloride 100 ML IVPB SCH ×3 (08:57→23:32)
[2021-05-01] MEDS: Aspirin Enteric Coated 81 MG Tablet PO SCH (08:57)
[2021-05-01] MEDS: Apixaban 5 MG TABLET PO SCH ×2 (08:57→20:19)
[2021-05-01] MEDS: carvediloL 6.25 MG TABLET PO SCH ×2 (08:58→20:19)
[2021-05-01] MEDS: Loratadine 10 MG TABLET PO SCH (08:58)
[2021-05-01] MEDS: QUEtiapine Fumarate 25 MG TABLET PO SCH ×2 (08:58→20:19)
[2021-05-01] MEDS: amLODIPine 5 MG TABLET PO SCH (08:58)
[2021-05-01] MEDS: Cholecalciferol (D-3) 1,000 UNIT (25MCG) TABLET PO SCH (08:59)
[2021-05-02] MEDS: ceFAZolin 2,000 MG in 0.9 % Sodium Chloride 100 ML IVPB SCH ×3 (09:19→23:15)
[2021-05-02] MEDS: Loratadine 10 MG TABLET PO SCH (09:20)
[2021-05-02] MEDS: Apixaban 5 MG TABLET PO SCH ×2 (09:20→19:56)
[2021-05-02] MEDS: Cholecalciferol (D-3) 1,000 UNIT (25MCG) TABLET PO SCH (09:20)
[2021-05-02] MEDS: Aspirin Enteric Coated 81 MG Tablet PO SCH (09:20)
[2021-05-02] MEDS: amLODIPine 5 MG TABLET PO SCH (09:20)
[2021-05-02] MEDS: QUEtiapine Fumarate 25 MG TABLET PO SCH ×2 (09:20→19:56)
[2021-05-02] MEDS: carvediloL 6.25 MG TABLET PO SCH ×2 (09:20→19:56)
[2021-05-03] MEDS: QUEtiapine Fumarate 25 MG TABLET PO SCH ×2 (07:57→19:20)
[2021-05-03] MEDS: amLODIPine 5 MG TABLET PO SCH (07:57)
[2021-05-03] MEDS: Loratadine 10 MG TABLET PO SCH (07:57)
[2021-05-03] MEDS: carvediloL 6.25 MG TABLET PO SCH ×2 (07:57→19:19)
[2021-05-03] MEDS: Aspirin Enteric Coated 81 MG Tablet PO SCH (07:57)
[2021-05-03] MEDS: Apixaban 5 MG TABLET PO SCH ×2 (07:57→19:19)
[2021-05-03] MEDS: Cholecalciferol (D-3) 1,000 UNIT (25MCG) TABLET PO SCH (07:57)
[2021-05-03] MEDS: ceFAZolin 2,000 MG in 0.9 % Sodium Chloride 100 ML IVPB SCH ×2 (07:57→16:59)
[2021-05-04] MEDS: ceFAZolin 2,000 MG in 0.9 % Sodium Chloride 100 ML IVPB SCH ×4 (00:31→23:09)
[2021-05-04] MEDS: carvediloL 6.25 MG TABLET PO SCH ×2 (10:13→21:19)
[2021-05-04] MEDS: Cholecalciferol (D-3) 1,000 UNIT (25MCG) TABLET PO SCH (10:13)
[2021-05-04] MEDS: amLODIPine 5 MG TABLET PO SCH (10:13)
[2021-05-04] MEDS: QUEtiapine Fumarate 25 MG TABLET PO SCH ×2 (10:14→21:19)
[2021-05-04] MEDS: Aspirin Enteric Coated 81 MG Tablet PO SCH (10:14)
[2021-05-04] MEDS: Apixaban 5 MG TABLET PO SCH ×2 (10:14→21:19)
[2021-05-04] MEDS: Loratadine 10 MG TABLET PO SCH (10:14)
[2021-05-05] MEDS: Apixaban 5 MG TABLET PO SCH ×2 (08:29→20:36)
[2021-05-05] MEDS: Aspirin Enteric Coated 81 MG Tablet PO SCH (08:29)
[2021-05-05] MEDS: Loratadine 10 MG TABLET PO SCH (08:29)
[2021-05-05] MEDS: QUEtiapine Fumarate 25 MG TABLET PO SCH ×2 (08:29→20:36)
[2021-05-05] MEDS: Cholecalciferol (D-3) 1,000 UNIT (25MCG) TABLET PO SCH (08:29)
[2021-05-05] MEDS: carvediloL 6.25 MG TABLET PO SCH ×2 (08:29→20:36)
[2021-05-05] MEDS: amLODIPine 5 MG TABLET PO SCH (08:29)
[2021-05-05] MEDS: ceFAZolin 2,000 MG in 0.9 % Sodium Chloride 100 ML IVPB SCH ×2 (08:30→17:53)
[2021-05-06] MEDS: ceFAZolin 2,000 MG in 0.9 % Sodium Chloride 100 ML IVPB SCH ×3 (00:38→17:36)
[2021-05-06] MEDS: Loratadine 10 MG TABLET PO SCH (08:00)
[2021-05-06] MEDS: QUEtiapine Fumarate 25 MG TABLET PO SCH ×2 (08:00→21:10)
[2021-05-06] MEDS: carvediloL 6.25 MG TABLET PO SCH ×2 (08:01→21:10)
[2021-05-06] MEDS: Aspirin Enteric Coated 81 MG Tablet PO SCH (08:01)
[2021-05-06] MEDS: amLODIPine 5 MG TABLET PO SCH (08:01)
[2021-05-06] MEDS: Apixaban 5 MG TABLET PO SCH ×2 (08:01→21:10)
[2021-05-06] MEDS: Cholecalciferol (D-3) 1,000 UNIT (25MCG) TABLET PO SCH (08:02)
[2021-05-07] MEDS: ceFAZolin 2,000 MG in 0.9 % Sodium Chloride 100 ML IVPB SCH ×2 (02:06→08:09)
[2021-05-07 03:34] VITALS: TEMP 97.9
[2021-05-07 07:31] VITALS: BP 150/88; PULSE 74; O2SAT 93
[2021-05-07] MEDS: QUEtiapine Fumarate 25 MG TABLET PO SCH (09:51)
[2021-05-07] MEDS: Cholecalciferol (D-3) 1,000 UNIT (25MCG) TABLET PO SCH (09:52)
[2021-05-07] MEDS: amLODIPine 5 MG TABLET PO SCH (09:52)
[2021-05-07] MEDS: Aspirin Enteric Coated 81 MG Tablet PO SCH (09:52)
[2021-05-07] MEDS: Loratadine 10 MG TABLET PO SCH (09:52)
[2021-05-07] MEDS: Apixaban 5 MG TABLET PO SCH (09:52)
[2021-05-07] MEDS: carvediloL 6.25 MG TABLET PO SCH (09:52)
== END 2021-05-07 12:52 | DRG 871 ==
LOC: EMEROOARM 11:51 → 2NENU 11:51 → SUATTDRO 15:38 → 2NENU 16:53 → SUATTDRO 04-14 11:34 → 3BNU 04-22 05:21
PROVIDERS: ADMIT Hospitalist; ATTEND Student in an Organized Health Care Education/Training Program